=== PATIENT | female | born 1990 | race Caucasian/White ===

== ENCOUNTER 2017-07-25 06:27 | Day surgery (SDC) | payer SELFPAY ==
[2017-07-17 12:40] VITALS: BMI 27.4
[2017-07-25] MEDS ORDERED: LIDOCAINE HCL 1%, 10 MG/ML (20ML VIAL) ONE (07:25)
[2017-07-25] MEDS ORDERED: BACITRACIN 15 GM TUBE TOPICAL OINTMENT ONE ×2 (07:25→11:19)
[2017-07-25] MEDS ORDERED: fentaNYL CITRATE 250 MCG/5 ML VIAL ONE ×2 (08:10→10:32)
[2017-07-25] MEDS ORDERED: ROCURONIUM BROMIDE 50 MG/5 ML VIAL ONE ×2 (08:11)
[2017-07-25] MEDS ORDERED: PROPOFOL 20 ML ONE ×6 (08:11)
[2017-07-25] MEDS ORDERED: SUCCINYLCHOLINE CHLORIDE 200 MG/10 ML VIAL ONE (08:11)
[2017-07-25] MEDS ORDERED: MIDAZOLAM HCL 2 MG/2 ML SINGLE DOSE VIAL ONE (08:11)
[2017-07-25] MEDS ORDERED: HALOPERIDOL LACTATE 5 MG/ML ONE (08:14)
[2017-07-25] MEDS ORDERED: HEPARIN NA (PORCINE) 5,000 UNITS/ML 1ML VIAL SQ ONE (08:45)
[2017-07-25] MEDS ORDERED: DEXAMETHASONE SOD PHOSPHATE 4 MG/1 ML VIAL ONE (08:51)
[2017-07-25] MEDS ORDERED: ceFAZolin SODIUM 1 GM VIAL ONE (08:51)
[2017-07-25] MEDS ORDERED: ONDANSETRON 4 MG/2 ML VIAL ONE (08:51)
[2017-07-25] MEDS ORDERED: ePHEDrine SULFATE 50 MG/1 ML AMPULE ONE (09:04)
[2017-07-25] MEDS ORDERED: HEPARIN NA (PORCINE) 5,000 UNITS/ML 1ML VIAL ONE (09:51)
[2017-07-25] MEDS ORDERED: GLYCOPYRROLATE 0.2 MG/1 ML VIAL ONE (12:08)
[2017-07-25] MEDS ORDERED: NEOSTIGMINE METHYLSULFATE 0.5 MG/ML - 10 ML MDV ONE (12:08)
[2017-07-25] MEDS ORDERED: PROMETHAZINE HCL 25 MG/1 ML VIAL IVPUSH PRN (12:57)
[2017-07-25] MEDS ORDERED: oxyCODONE HCL 5 MG TABLET PO PRN ×2 (12:57)
[2017-07-25] MEDS ORDERED: ONDANSETRON 4 MG/2 ML VIAL IVPUSH PRN (12:57)
[2017-07-25] MEDS ORDERED: LACTATED RINGERS SOLUTION 1,000 ML IV SCH (13:00)
[2017-07-25] MEDS ORDERED: oxyCODONE HCL 5 MG TABLET ONE (14:35)
[2017-07-25 14:45] VITALS: TEMP 98.8
[2017-07-25 17:34] VITALS: BP 131/59; PULSE 97
== END 2017-07-25 16:50 | disposition home or self-care (01) ==
LOC: FASU 06:27
PROVIDERS: ATTEND Surgery
PROC: 0J0D3ZZ Alteration of Right Upper Arm Subcutaneous Tissue and Fascia, Percutaneous Approach (ICD-10-PCS; 2017-07-25)
PROC: 0J073ZZ Alteration of Back Subcutaneous Tissue and Fascia, Percutaneous Approach (ICD-10-PCS; 2017-07-25)
PROC: 0JR Subcutaneous Tissue and Fascia, Replacement (ICD-10-PCS; 2017-07-25)
PROC: 0J0F3ZZ Alteration of Left Upper Arm Subcutaneous Tissue and Fascia, Percutaneous Approach (ICD-10-PCS; principal; 2017-07-25 08:57)
DX: Z41.1 Encounter for cosmetic surgery (principal)
CPT/HCPCS: 84703; 94760; J1644